=== PATIENT | male | born 1985 | race Caucasian/White ===

== ENCOUNTER 2019-03-03 13:59 | Inpatient (IN) | payer MEDICARE, MEDICAID ==
[2019-03-03] VITALS (14 sets, daily range): BP systolic 118–197; BP diastolic 61–117
[~2019-03-03] VITALS: Ht 182.9 cm; Wt 145.8 kg
[~2019-03-03 13:59] MED LIST: ALBU6.7H INH; BUPR150T PO; CARV25TA47 PO; CHOL100022 PO; CLON1TAB12 PO; ELVI1TAB3 PO; FURO20TA4 PO; LOSA25TA3 PO; NAPR-681 PO; NEPVIT PO; OMEP-265 PO; SEVE800T8 PO; VENL225T3 PO
[2019-03-03 14:42] LABS: BASOPHILS % 1.4 % (0.0-2.0); EOSINOPHILS % 2.2 % (0.0-5.0); HEMATOCRIT. 27.8 % (42.0-52.0); HEMOGLOBIN. 9.6 g/dL (14.0-18.0); MEAN CORPUSCULAR HEMOGLOBIN 33.8 pg (28.0-32.0); MEAN CORPUSCULAR VOLUME 98.4 fL (80.0-94.0); MEAN PLATELET VOLUME 9.6 fl (7.4-10.4); MONOCYTES % 8.3 % (2.0-8.0); NEUTROPHILS % 74.1 % (40.0-76.0); PLATELET 154 x1000/uL (130-400); RED BLOOD CELL COUNT 2.83 mill/uL (4.7-6.1); RED CELL DISTRIBUTION WIDTH 17.8 % (11.6-14.6)
[2019-03-03] MEDS ORDERED: SODIUM CHLORIDE 0.9% 1000ML BAG (SEPSIS BOLUS) IV ONE (14:45)
[2019-03-03] MEDS ORDERED: CALCIUM GLUCONATE 100MG/ML 10ML VIAL IV ONE (14:45)
[2019-03-03] MEDS ORDERED: SODIUM BICARBONATE 8.4% 1 MEQ/ML 50ML SYR IV ONE ×2 (14:45→15:15)
[2019-03-03] MEDS ORDERED: CALCIUM GLUCONATE 1,000 MG in DEXTROSE 5% WATER 50 ML IV SCH (14:45)
[2019-03-03] MEDS ORDERED: PIPERACILLIN/TAZ 3.375G PREMIX 50 ML IV ONE (14:45)
[2019-03-03] MEDS ORDERED: ACETAMINOPHEN 325MG TABLET PO ONE (14:45)
[2019-03-03 14:49] LABS: CHLORIDE 99 mEq/L (98-107)
[2019-03-03 14:50] LABS: PARTIAL THROMBOPLASTIN TIME 32.4 sec (23.4-31.0); PROTHROMBIN TIME 10.4 sec (9.6-11.0)
[2019-03-03] MEDS ORDERED: SODIUM POLYSTYRENE SULFONATE 15 G/60 ML BOT PO ONE (15:15)
[2019-03-03] MEDS ORDERED: INSULIN REGULAR (HUMULIN R) 300UNITS/3ML IV ONE (15:15)
[2019-03-03] MEDS ORDERED: DEXTROSE 50% WATER 50ML SYRINGE IV ONE (15:15)
[2019-03-03] MEDS ORDERED: ALBUTEROL (0.083%) 2.5MG/3ML NEB HHN ONE (15:15)
[2019-03-03] MEDS ORDERED: ACETAMINOPHEN 325MG TABLET PO PRN (16:30)
[2019-03-03] MEDS ORDERED: IPRATROPIUM/ALBUTEROL 0.5-3(2.5)MG/3ML NEB INH PRN (16:30)
[2019-03-03] MEDS ORDERED: CLONIDINE 0.1MG TABLET PO PRN (16:30)
[2019-03-03] MEDS ORDERED: ONDANSETRON HCL 4MG/2ML INJ IV PRN (16:30)
[2019-03-03] MEDS ORDERED: DOCUSATE SODIUM 100MG CAPSULE PO PRN (16:30)
[2019-03-03] MEDS ORDERED: HYDROCODONE/ACETAMINOPHEN 5/325MG TABLET PO PRN (16:30)
[2019-03-03 16:50] LABS: CLARITY URINE CLEAR (CLEAR); COLOR URINE YELLOW (YELLOW); KETONES URINE NEGATIVE (NEGATIVE); LEUKOCYTE ESTERASE URINE TRACE (NEGATIVE); NITRITE URINE NEGATIVE (NEGATIVE); OCCULT BLOOD URINE NEGATIVE (NEGATIVE); PH URINE 8.5 (4.5-8.0); PROTEIN URINE 2+ (NEGATIVE); SPECIFIC GRAVITY URINE 1.011 (1.005-1.030); UROBILINOGEN URINE 0.2 E.U./dL (0.2-1.0)
[2019-03-03 17:43] LABS: VITAMIN B12 SERUM 475 pg/mL (211-911)
[2019-03-03] MEDS ORDERED: METO5TAB2 PO (20:47)
[2019-03-03] MEDS ORDERED: CARV25TA47 MT (20:47)
[2019-03-03] MEDS ORDERED: FURO40TA5 PO (20:47)
[2019-03-03] MEDS ORDERED: BUPR200T31 PO (20:47)
[2019-03-03] MEDS ORDERED: IVAB5TAB MT (20:47)
[2019-03-03] MEDS ORDERED: DOLU1TAB PO (20:47)
[2019-03-03] MEDS ORDERED: VITA0.4T16 MT (20:47)
[2019-03-03] MEDS ORDERED: CINA60 PO (20:51)
[2019-03-03] MEDS: LORAZEPAM 0.5MG TABLET PO PRN (23:11)
[2019-03-04] VITALS (39 sets, daily range): BP systolic 70–212; BP diastolic 24–128
[2019-03-04] MEDS: LORAZEPAM 0.5MG TABLET PO PRN (04:39)
[2019-03-04 05:48] LABS: BASOPHILS % 0.8 % (0.0-2.0); EOSINOPHILS % 2.2 % (0.0-5.0); HEMATOCRIT. 25.8 % (42.0-52.0); LYMPHOCYTES % 19.6 % (20.0-50.0); MEAN CORPUSCULAR HEMOGLOBIN 33.8 pg (28.0-32.0); MEAN CORPUSCULAR VOLUME 97.3 fL (80.0-94.0); MEAN PLATELET VOLUME 9.4 fl (7.4-10.4); MONOCYTES % 11.3 % (2.0-8.0); NEUTROPHILS % 66.1 % (40.0-76.0); PLATELET 121 x1000/uL (130-400); RED BLOOD CELL COUNT 2.65 mill/uL (4.7-6.1); RED CELL DISTRIBUTION WIDTH 18.1 % (11.6-14.6)
[2019-03-04] MEDS ORDERED: RANI-655 MT (07:42)
[2019-03-04] MEDS ORDERED: METOCLOPRAMIDE HCL 5MG TABLET PO SCH (07:50)
[2019-03-04] MEDS ORDERED: ZOLPIDEM TARTRATE 5MG TABLET PO PRN (08:00)
[2019-03-04] MEDS ORDERED: NON FORMULARY PATIENT HOME MED XX SCH ×2 (08:45)
[2019-03-04] MEDS ORDERED: CARVEDILOL 12.5MG TABLET PO SCH ×3 (09:00→09:30)
[2019-03-04] MEDS ORDERED: SEVELAMER CARBONATE 800 MG TABLET PO SCH ×2 (09:00→13:20)
[2019-03-04] MEDS ORDERED: FOLIC ACID/VITAMIN B COMP W-C TABLET PO SCH ×2 (09:00)
[2019-03-04] MEDS ORDERED: BUPROPION HCL 150MG TABLET XL 24HR PO SCH (09:00)
[2019-03-04] MEDS ORDERED: LORAZEPAM 1MG TABLET PO SCH (09:00)
[2019-03-04] MEDS ORDERED: LOSARTAN POTASSIUM 25 MG TABLET PO SCH ×2 (09:00→21:00)
[2019-03-04] MEDS ORDERED: GABAPENTIN 300MG CAPSULE PO SCH (09:00)
[2019-03-04] MEDS ORDERED: CINACALCET HCL 60MG TABLET PO SCH ×2 (09:00→21:00)
[2019-03-04] MEDS ORDERED: HEPARIN 5000 UNITS/ML VIAL SUBCUT SCH (09:00)
[2019-03-04] MEDS ORDERED: FOLIC ACID 1MG TABLET PO SCH (09:00)
[2019-03-04] MEDS ORDERED: FUROSEMIDE 20MG TABLET PO SCH ×2 (09:00→09:15)
[2019-03-04] MEDS ORDERED: OMEPRAZOLE 20MG CAPSULE EXTENDED RELEASE PO SCH (09:15)
[2019-03-04] MEDS ORDERED: CLONAZEPAM 1MG TABLET PO SCH (09:30)
[2019-03-04] MEDS ORDERED: BUPROPION HCL 150MG SR TABLET PO SCH (11:00)
[2019-03-04] MEDS ORDERED: VENLAFAXINE HCL 37.5MG TABLET PO SCH (11:00)
[2019-03-04] MEDS ORDERED: VENLAFAXINE HCL 37.5MG SR CAPSULE 24HR PO SCH (13:00)
[2019-03-04] MEDS ORDERED: METOCLOPRAMIDE 10MG/10 ML UDC PO SCH (14:00)
[2019-03-04 16:46] LABS: *AMPHETAMINES SCREEN URINE NEGATIVE (NEGATIVE); *BARBITURATES SCREEN URINE NEGATIVE (NEGATIVE); CANNABINOID URINE SCREEN NEGATIVE (NEGATIVE); PHENCYCLIDINE URINE SCREEN NEGATIVE (NEGATIVE)
[2019-03-04 16:47] LABS: *BENZODIAZEPINES SCREEN URINE NEGATIVE (NEGATIVE); *COCAINE SCREEN URINE NEGATIVE (NEGATIVE); METHADONE URINE SCREEN NEGATIVE (NEGATIVE); OPIATES URINE SCREEN NEGATIVE (NEGATIVE)
== END 2019-03-04 14:12 | disposition home or self-care (01) | DRG 189 ==
LOC: ER 13:59 → CVICU 15:54 → EDBEDREQ 16:03 → EDBEDREQTM 16:03 → EDBEDREQSVC 17:09 → ENRESERV 18:24
PROVIDERS: ADMIT Internal Medicine; ATTEND Internal Medicine
PROC: 5A1D70Z Performance of Urinary Filtration, Intermittent, Less than 6 Hours Per Day (ICD-10-PCS; principal; 2019-03-03)
PROC: 5A1D70Z Performance of Urinary Filtration, Intermittent, Less than 6 Hours Per Day (ICD-10-PCS; 2019-03-04)
DX: J96.00 Acute respiratory failure, unspecified whether with hypoxia or hypercapnia (principal); N18.6 End stage renal disease; N25.81 Secondary hyperparathyroidism of renal origin; I50.32 Chronic diastolic (congestive) heart failure; I13.2 Hypertensive heart and chronic kidney disease with heart failure and with stage 5 chronic kidney disease, or end stage renal disease; J98.11 Atelectasis; E87.5 Hyperkalemia; D63.1 Anemia in chronic kidney disease; D69.6 Thrombocytopenia, unspecified; J45.909 Unspecified asthma, uncomplicated; D53.9 Nutritional anemia, unspecified; F32.9 Major depressive disorder, single episode, unspecified; R80.9 Proteinuria, unspecified; Z79.899 Other long term (current) drug therapy; Z99.2 Dependence on renal dialysis; Z88.8 Allergy status to other drugs, medicaments and biological substances
CPT/HCPCS: 36415; 71045; 80048; 80305; 81003; 82607; 83605; 83880; 84132; 84145; 84484; 93005; 93970; 99285; J0610; J1644; J1815; J2543; J3490; J7030; J7060; J7611; J8597